=== PATIENT | male | born 1970 | race Caucasian/White ===

== ENCOUNTER → 2016-07-22 | Outpatient (REF) ==
[~2016-07-22] MED LIST: NAPROSYN 2250 MG/TAB PO; NORCO 325 MG-51 TAB PO
== END ==
LOC: WSOH 08:18
DX: Z02.4 Encounter for examination for driving license (principal)

== ENCOUNTER → 2017-10-27 | Outpatient (CLI) | payer BC | LOC: COL.RAD 12:40 | DX: L72.8 Other follicular cysts of the skin and subcutaneous tissue (principal) ==